=== PATIENT | female | born 1965 | race Caucasian/White ===

== ENCOUNTER 2016-10-24 08:58 | Emergency (ER) | payer OTHER ==
[2016-10-24 09:06] VITALS: BP 155/111
[2016-10-24 09:25] LABS: BILIRUBIN,URINE NEGATIVE (NEGATIVE)
[2016-10-24 09:28] LABS: HCG UR QUAL NEGATIVE; UA CHARGE (STRIP ONLY) YES; UR CULTURE IF IND NOT INDICATED
[2016-10-24] MEDS ORDERED: oxyCOD/ACETAMIN 5 MG/325 MG TABLET PO STA (09:35)
[2016-10-24] MEDS ORDERED: oxyCOD/ACETAMIN 5 MG/325 MG TABLET PO ONE (09:40)
[2016-10-24] MEDS ORDERED: DEXAMETHASONE 10 MG/ML VIAL PO STA (09:50)
--- NOTE | 2016-10-24 09:51 | ED Physician Documentation ---
History of Present Illness - Stated complaint Stated Complaint: KIDNEY PX - Chief complaint Chief Complaint: General - History obtained from History obtained from: Patient, Friend - History of Present Illness Timing: How many days ago (4) Pain level max: 8 Pain level now: 8 Improved by: nothing Worsened by: nothing - Treatment prior to arrival Treatment prior to arrival: Patient is a 51-year-old female who presents to the emergency department with left-sided flank pain for the past 4 days. After the initial 1-2 days of pain described as burning and sharp, She developed a rash on the left flank. This is painful to the touch. 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 - Present Medications Home Medications: Ambulatory Orders Medication Instructions Recorded Confirmed Oxycodone HCl/Acetaminophen 1 - 2 each PO Q6H PRN #14 tablet 10/24/16 [Percocet 5-325 mg Tablet] Valacyclovir HCl [Valtrex] 1,000 mg PO TID #21 tablet 10/24/16 - Allergies Allergies/Adverse Reactions: Allergies Allergy/AdvReac Type Severity Reaction Status Date / Time No Known Drug Allergies Allergy Verified 10/24/16 09:04 - Social History Does the pt smoke?: No Smoking Status: Never smoker Does the pt drink ETOH?: No Does the pt have substance abuse?: No PD ED PE NORMAL - Vitals Vital signs reviewed: Yes - General General: Alert and oriented X 3, No acute distress - HEENT HEENT: Moist mucous membranes - Neck Neck: Supple, no meningeal sign, No bony TTP - Cardiac Cardiac: RRR, Strong equal pulses - Respiratory Respiratory: No respiratory distress, Clear bilaterally - Abdomen Abdomen: Soft, Non tender, Non distended - Back Back: No spinal TTP, Other (L flank tenderness and erythematous exanthem, starts at midline and spreads in a dermatomal pattern. No current vesicles or crusting. 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, No motor deficit, No sensory deficit Results - Vitals Vitals: Vital Signs - 24 hr 10/24/16 09:02 Temperature 36.6 C Heart Rate 76 Respiratory 16 Rate Blood Pressure 155/111 H O2 Saturation 97 Oxygen O2 Source Room air - Labs Labs: Laboratory Tests 10/24/16 09:10 Urine Color YELLOW Urine Clarity CLEAR Urine pH 6.0 Ur Specific [place] 1.010 Urine Protein NEGATIVE Urine Glucose (UA) NEGATIVE Urine Ketones NEGATIVE Urine Occult Blood NEGATIVE Urine Nitrite NEGATIVE Urine Bilirubin NEGATIVE Urine Urobilinogen 0.2 (NORMAL) Ur Leukocyte Esterase NEGATIVE Ur Microscopic Review NOT INDICATED Urine Culture Comments NOT INDICATED Urine HCG, Qual NEGATIVE PD MEDICAL DECISION MAKING - ED course Complexity details: considered differential, d/w patient, d/w family ED course: Patient is a 51-year-old female who presents to the emergency department with 2 days of left flank pain followed by an erythematous painful rash in a dermatomal distribution. Concerning for herpes zoster. We will place her on valacyclovir for this for home as well as pain medication. Given a dose of dexamethasone here. She is well-appearing, nontoxic. Afebrile. Does not appear to be complicated zoster. Patient counseled regarding signs and symptoms for which I believe and urgent re-evaluation would be necessary. Patient with good understanding of and agreement to plan and is comfortable going home at this time This document was made in part using voice recognition software. While efforts are made to proofread this document, sound alike and grammatical errors may occur. Departure - Departure Disposition: 01 Home, Self Care Clinical Impression: Shingles Qualifiers: Herpes zoster complications: without complications Qualified Code(s): B02.9 - Zoster without complications Condition: Good Instructions: ED Shingles Follow-Up: your,doctor in 1 week [Other] Prescriptions: Oxycodone HCl/Acetaminophen [Percocet 5-325 mg Tablet] 1 - 2 each PO Q6H PRN # 14 tablet PRN Reason: pain Valacyclovir HCl [Valtrex] 1,000 mg PO TID #21 tablet Comments: Return if you worsen. Take all medications until gone. Do not drink alcohol or drive while on narcotic pain medicine. Note that many narcotic pain relievers also contain tylenol/acetaminophen. Please ensure that your total dose of acetaminophen from all sources does not exceed 3 grams (3000mg) per day. You may constipated on this medication, take a stool softener such as "Colace" twice a day while you are on it. Also recommend a [id number] laxative such as senna or MiraLAX any day that you do not have a bowel movement. If you received narcotic pain medication in the emergency department, do not drive or operate machinery for the next 24 hours. Your blood pressure was elevated today on check in to the emergency department. This does not mean that you have hypertension, it is a common phenomenon to check into the emergency department and have elevated blood pressure. I recommend that you see your primary care physician within the week to have it rechecked when you're feeling better. Forms: Activity restrictions Discharge Date/Time: 10/24/16 10:02
[2016-10-24] MEDS ORDERED: CHERRY SYRUP 10 ML UDC PO ONE (09:57)
[2016-10-24] MEDS ORDERED: DEXAMETHASONE 10 MG/ML VIAL ONE (09:57)
== END 2016-10-24 10:02 | disposition home or self-care (01) ==
LOC: ED 08:58
DX: B02.9 Zoster without complications (principal); R03.0 Elevated blood-pressure reading, without diagnosis of hypertension
CPT/HCPCS: 81003; 81025; 99283; A9270; 81001; 87086

== ENCOUNTER 2016-10-30 15:58 | Emergency (ER) | payer OTHER ==
[2016-10-30 16:06] VITALS: BP 170/74
--- NOTE | 2016-10-30 16:12 | ED Physician Documentation ---
PD HPI SKIN - Stated complaint Stated Complaint: RASH ON BACK - Chief complaint Chief Complaint: Wound - History obtained from History obtained from: Patient - History of Present Illness Timing - onset: How many weeks ago (1) Timing - details: Still present Location: Back Quality / character: Itchy, Painful, Vesicular Improved by: Other (acyclovir) Associated symptoms: No: Fever, Headache, Dyspnea Similar symptoms before: Diagnosis (shingles) Recently seen: Emergency Dept (1 week ago) - Treatment prior to arrival Treatment prior to arrival: acyclovir and Percocet - Additional information Additional information: The patient is a 51-year-old female who was seen here one week ago and diagnosed with shingles. She was prescribed acyclovir and Percocet that time, and has been taking the medication as prescribed. 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 HEENT: Tonsil/Adenoidectomy - Present Medications Home Medications: Ambulatory Orders Medication Instructions Recorded Confirmed Oxycodone HCl/Acetaminophen 1 - 2 each PO Q6H PRN #14 tablet 10/24/16 10/30/16 [Percocet 5-325 mg Tablet] Valacyclovir HCl [Valtrex] 1,000 mg PO TID #21 tablet 10/24/16 10/30/16 - Allergies Allergies/Adverse Reactions: Allergies Allergy/AdvReac Type Severity Reaction Status Date / Time No Known Drug Allergies Allergy Verified 10/24/16 09:04 - Social History Does the pt smoke?: No Smoking Status: Never smoker Does the pt drink ETOH?: No Does the pt have substance abuse?: No - Immunizations Immunizations are current?: Yes PD ED PE NORMAL - Vitals Vital signs reviewed: Yes (initially hypertensive.) - General General: Alert and oriented X 3, Well developed/nourished - HEENT HEENT: Atraumatic - Respiratory Respiratory: No respiratory distress - Derm Derm: Other (Typical shingles rash in the left lower thoracic dermatome. Most of the vesicles have crusted, but a few are still open. There is no evidence of secondary cellulitis.) - Neuro Neuro: Alert and oriented X 3, Normal speech Results - Vitals Vitals: Oxygen O2 Source Room air PD MEDICAL DECISION MAKING - ED course Complexity details: reviewed old records, considered differential, d/w patient ED course: The patient's presentation is consistent with improving shingles while on acyclovir. I discussed with her the expected course of illness, continued treatment and outpatient follow-up, as well as potentially worrisome signs or symptoms that should prompt reevaluation emergency department. She is given a work release for 4 days. Departure - Departure Disposition: Home, Self Care Clinical Impression: Shingles Qualifiers: Herpes zoster complications: without complications Qualified Code(s): B02.9 - Zoster without complications Condition: Stable Instructions: ED Shingles Follow-Up: [facility] [Provider Group] Comments: Finish your prescription for acyclovir as previously prescribed. You can use ibuprofen, up to 800 mg 3 times daily if needed for pain. You can also use Percocet as previously prescribed if needed for pain. Follow-up with primary physician. Call to schedule for next available appointment. Return to the emergency department if you develop increasing pain, fever, difficulty breathing, or otherwise worsening symptoms. Your blood pressure was high when you checked into the emergency department today. That does not necessarily mean that you always have high blood pressure. Many people have high blood pressure as a transient finding in the emergency department. It is recommended that you follow up with primary physician within one to 2 weeks to have it rechecked. Forms: Activity restrictions Discharge Date/Time: 10/30/16 16:17
== END 2016-10-30 16:17 | disposition home or self-care (01) ==
LOC: ED 15:58
DX: B02.9 Zoster without complications (principal)
CPT/HCPCS: 99282; 99283